=== PATIENT | male | born 1990 | race Hispanic/Latino ===

== ENCOUNTER 2018-07-14 08:44 | Emergency (ER) | payer SELFPAY ==
[~2018-07-14] VITALS: Ht 180.3 cm; Wt 100.0 kg
[~2018-07-14 08:44] MED LIST: BACTRIM DS1 TAB OR; LORTAB 5 OR; NO MEDS; PENICILLN VK500 MG OR; TESSALON PER100 MG PO; ULTRAM50 MG OR; ZITHROMAX250 MG PO
[2018-07-14 09:07] LABS: HEMATOCRIT 38.3 % (39.0-50.0); HEMOGLOBIN 13.5 g/dl (14.0-18.0); IMMATURE GRANULOCYTES 0.6 % (0.0-5.0); MEAN CORPUSCULAR HGB 30.5 pG CALC (26.0-32.0); MEAN CORPUSCULAR HGB CONC 35.2 g/L CALC (32.0-36.0); NEUT# 13.89 thou/uL (1.82-7.42); RED BLOOD COUNT 4.42 mill/uL (4.70-6.10); RED CELL DISTRI WIDTH 11.7 % (11.5-15.5)
[2018-07-14 09:08] LABS: MEAN CELL VOLUME 86.7 fL CALC (80.0-100.0)
[2018-07-14 09:38] VITALS: BP 142/84
[2018-07-14 09:47] LABS: ANION GAP 18 (6-22 (CALC)); BUN 11 mg/dL (9-20); BUN/CREATININE RATIO 14 (12-20 (CALC)); CARBON DIOXIDE 22 mmol/l (22-30); CHLORIDE 102 mmol/l (95-108); CREATININE 0.8 mg/dL (0.7-1.3); GFR > 60 ML/MIN (>=60 (CALC)); GFR FOR AFR.AMER. > 60 ML/MIN (>=60 (CALC)); SODIUM 138 mmol/l (137-146)
[2018-07-14 09:54] LABS: POTASSIUM 3.5 mmol/l (3.5-5.1)
== END 2018-07-14 09:30 | disposition short-term general hospital (02) | DRG 605 ==
LOC: ED 08:44
PROVIDERS: Family Medicine
DX: S51.812A Laceration without foreign body of left forearm, initial encounter (principal); X78.1XXA Intentional self-harm by knife, initial encounter; Y92.009 Unspecified place in unspecified non-institutional (private) residence as the place of occurrence of the external cause